=== PATIENT | male | born 1935 | race Caucasian/White ===

== ENCOUNTER 2017-08-27 09:27 | Outpatient (RCR) | payer MEDICARE, OTHER, SELFPAY ==
[2017-08-27 10:53] LABS: PSA,Total- Diagnostic < 0.01 ng/mL (0.0-4.0)
== END 2017-08-27 10:00 | disposition home or self-care (01) ==
LOC: LAB 09:27
PROVIDERS: Family Provider Family Medicine; PCP Family Medicine
DX: C61 Malignant neoplasm of prostate (principal)
CPT/HCPCS: 36415; 84153

== ENCOUNTER → 2018-02-25 12:02 | Outpatient (CLI) | payer MEDICARE, OTHER, SELFPAY ==
[2018-02-25 13:21] LABS: PSA,Total- Diagnostic < 0.01 ng/mL (0.0-4.0)
== END ==
PROVIDERS: Family Provider Family Medicine; PCP Family Medicine
DX: C61 Malignant neoplasm of prostate (principal)
CPT/HCPCS: 36415; 84153; 84403

== ENCOUNTER → 2018-08-29 11:27 | Outpatient (CLI) | payer MEDICARE, OTHER, SELFPAY ==
[2018-06-03 14:02] VITALS: BMI 24.9
[2018-08-29 13:16] LABS: PSA,Total- Diagnostic < 0.01 ng/mL (0.0-4.0)
== END ==
PROVIDERS: Family Provider Family Medicine; PCP Family Medicine
DX: C61 Malignant neoplasm of prostate (principal)
CPT/HCPCS: 36415; 84153; 84403

== ENCOUNTER → 2019-02-24 11:28 | Outpatient (CLI) | payer MEDICARE, OTHER, SELFPAY ==
[2019-01-09 14:47] VITALS: BMI 24.5
[2019-02-24 13:27] LABS: AST(SGOT) 31 U/L (15-37); Alanine Aminotransfer ALT/SGPT 29 U/L (16-61); Albumin, Serum 3.5 g/dL (3.2-5.0); Alkaline Phosphatase 69 U/L (45-117); Anion Gap 10 (5-15); BUN 14 mg/dL (7-18); BUN/Creat Ratio 13.2 RATIO (10-20); Calcium,Total 8.6 mg/dL (8.5-10.1); Chloride 108 mmol/L (98-107); Creatinine, Serum 1.06 mg/dL (0.70-1.30); EST Glomerular Filtration Rate 71 mL/min (>60); Est Glom Filt Rate - Afr Amer 86 mL/min (>60); Globulin 3.4 g/dL (2.2-4.2); Glucose 80 mg/dL (74-106); PSA,Total- Diagnostic < 0.01 ng/mL (0.0-4.0); Potassium 4.2 mmol/L (3.5-5.1); Protein, Total 6.9 g/dL (6.4-8.2); Sodium Level 141 mmol/L (136-145)
== END ==
PROVIDERS: Family Provider Family Medicine; PCP Family Medicine
DX: C61 Malignant neoplasm of prostate (principal)
CPT/HCPCS: 36415; 80053; 84153

== ENCOUNTER → 2019-08-24 09:22 | Outpatient (CLI) | payer MEDICARE, OTHER, SELFPAY ==
[2019-01-09 14:47] VITALS: BMI 24.5
[2019-08-24 10:53] LABS: ALB/GLOB Ratio 0.9 RATIO (0.9-2.4); AST(SGOT) 23 U/L (15-37); Alanine Aminotransfer ALT/SGPT 24 U/L (16-61); Albumin, Serum 3.4 g/dL (3.2-5.0); Alkaline Phosphatase 72 U/L (45-117); Anion Gap 5 (5-15); BUN 16 mg/dL (7-18); BUN/Creat Ratio 15.2 RATIO (10-20); Calcium,Total 8.9 mg/dL (8.5-10.1); Chloride 108 mmol/L (98-107); Creatinine, Serum 1.05 mg/dL (0.70-1.30); EST Glomerular Filtration Rate 71 mL/min (>60); Est Glom Filt Rate - Afr Amer 86 mL/min (>60); Globulin 3.6 g/dL (2.2-4.2); Glucose 149 mg/dL (74-106); PSA,Total- Diagnostic < 0.01 ng/mL (0.0-4.0); Potassium 4.1 mmol/L (3.5-5.1); Sodium Level 141 mmol/L (136-145)
== END ==
PROVIDERS: PCP Family Medicine
DX: C61 Malignant neoplasm of prostate (principal)
CPT/HCPCS: 36415; 80053; 84153; 84403

== ENCOUNTER → 2019-11-06 14:35 | Outpatient (CLI) | payer MEDICARE, OTHER, SELFPAY ==
[2019-08-30 10:03] VITALS: BMI 24.0
[2019-11-06 16:06] LABS: Absolute Lymphocyte Count 3.31 X10^3/uL (0.83-4.51); Basophil# 0.06 X10^3/uL; Basophil% 0.9 % (0-1); Eosinophil# 0.42 X10^3/uL; Eosinophils% 6.6 % (0-5); Hemoglobin 13.8 g/dL (13.0-16.5); Lymphocyte # 3.31 X10^3/ul (4.0); Lymphocyte % 51.9 % (19-41); Mean Corp Hgb Conc 32.9 g/dL (32-36); Mean Corpuscular Volume 100.5 fL (80-94); Mean Platelet Vol. 10.1 fl (6.2-12.0); Monocyte# 0.58 X10^3/uL; Monocyte% 9.1 % (0-10); NRBC Flagged by Analyzer 0 % (0-5); Neutrophil % 31.3 % (47-70); Platelet Count 177 K/mm3 (150-450); RBC Distribution Width CV 13.4 % (11.6-14.6); RBC Distribution Width SD 49.8 fl (35.1-43.9); Red Blood Count 4.18 M/mm3 (4.6-6.2); White Blood Count 6.4 K/mm3 (4.4-11.0)
[2019-11-06 17:03] LABS: AST(SGOT) 23 U/L (15-37); Alanine Aminotransfer ALT/SGPT 26 U/L (16-61); Albumin, Serum 3.5 g/dL (3.2-5.0); Alkaline Phosphatase 62 U/L (45-117); Anion Gap 7 (5-15); BUN 12 mg/dL (7-18); BUN/Creat Ratio 11.7 RATIO (10-20); Calcium,Total 8.8 mg/dL (8.5-10.1); Chloride 105 mmol/L (98-107); Creatinine, Serum 1.03 mg/dL (0.70-1.30); EST Glomerular Filtration Rate 73 mL/min (>60); Est Glom Filt Rate - Afr Amer 88 mL/min (>60); Globulin 3.5 g/dL (2.2-4.2); Glucose 113 mg/dL (74-106); PSA,Total- Diagnostic < 0.01 ng/mL (0.0-4.0); Sodium Level 138 mmol/L (136-145)
== END ==
PROVIDERS: PCP Family Medicine
DX: C61 Malignant neoplasm of prostate (principal)
CPT/HCPCS: 36415; 80053; 84153; 84403; 85025

== ENCOUNTER → 2020-04-05 12:29 | Outpatient (CLI) | payer MEDICARE, OTHER, SELFPAY ==
[2019-08-30 10:03] VITALS: BMI 24.0
[2020-04-05 14:12] LABS: Absolute Lymphocyte Count 2.51 X10^3/uL (0.83-4.51); Basophil# 0.05 X10^3/uL; Basophil% 0.9 % (0-1); Eosinophil# 0.24 X10^3/uL; Eosinophils% 4.4 % (0-5); Hematocrit 41.9 % (40-54); Hemoglobin 13.5 g/dL (13.0-16.5); Lymphocyte # 2.51 X10^3/ul (4.0); Lymphocyte % 46.3 % (19-41); Mean Corp Hgb Conc 32.2 g/dL (32-36); Mean Corpuscular Hgb 32.8 pg (27.0-32.0); Mean Corpuscular Volume 101.7 fL (80-94); Mean Platelet Vol. 10.4 fl (6.2-12.0); Monocyte# 0.63 X10^3/uL; Monocyte% 11.6 % (0-10); NRBC Flagged by Analyzer 0 % (0-5); Neutrophil # 1.98 X10^3/uL (2.7-7.7); Neutrophil % 36.6 % (47-70); Platelet Count 188 K/mm3 (150-450); RBC Distribution Width CV 12.7 % (11.6-14.6); Red Blood Count 4.12 M/mm3 (4.6-6.2); White Blood Count 5.4 K/mm3 (4.4-11.0)
[2020-04-05 14:38] LABS: AST(SGOT) 23 U/L (15-37); Alanine Aminotransfer ALT/SGPT 25 U/L (16-61); Albumin, Serum 3.6 g/dL (3.2-5.0); Alkaline Phosphatase 72 U/L (45-117); Anion Gap 5 (5-15); BUN 15 mg/dL (7-18); BUN/Creat Ratio 15.2 RATIO (10-20); Calcium,Total 8.6 mg/dL (8.5-10.1); Chloride 104 mmol/L (98-107); Creatinine, Serum 0.98 mg/dL (0.70-1.30); EST Glomerular Filtration Rate 77 mL/min (>60); Est Glom Filt Rate - Afr Amer 93 mL/min (>60); Globulin 3.6 g/dL (2.2-4.2); Glucose 152 mg/dL (74-106); PSA,Total- Diagnostic < 0.01 ng/mL (0.0-4.0); Potassium 4.3 mmol/L (3.5-5.1); Protein, Total 7.2 g/dL (6.4-8.2); Sodium Level 136 mmol/L (136-145)
== END ==
PROVIDERS: PCP Family Medicine
DX: C61 Malignant neoplasm of prostate (principal)
CPT/HCPCS: 36415; 80053; 84153; 85025

== ENCOUNTER → 2020-10-22 12:23 | Outpatient (CLI) | payer MEDICARE, OTHER, SELFPAY ==
[2020-10-18 13:27] VITALS: BMI 24.0
[2020-10-22 13:36] LABS: Absolute Lymphocyte Count 1.97 X10^3/uL (0.83-4.51); Absolute Neutrophil Count 1.8 X10^3/uL (2.0-7.7); Basophil# 0.06 X10^3/uL; Basophil% 1.3 % (0-1); Eosinophil# 0.16 X10^3/uL; Eosinophils% 3.5 % (0-5); Hematocrit 41.2 % (40-54); Hemoglobin 13.1 g/dL (13.0-16.5); Lymphocyte # 1.97 X10^3/ul (0.83-4.51); Mean Corp Hgb Conc 31.8 g/dL (32-36); Mean Corpuscular Hgb 32.2 pg (27.0-32.0); Mean Corpuscular Volume 101.2 fL (80-94); Mean Platelet Vol. 10.5 fl (6.2-12.0); Monocyte# 0.59 X10^3/uL; Monocyte% 12.9 % (0-10); NRBC Flagged by Analyzer 0 % (0-5); Neutrophil # 1.79 X10^3/uL (2.7-7.7); Neutrophil % 39.1 % (47-70); Platelet Count 179 K/mm3 (150-450); RBC Distribution Width CV 13.2 % (11.6-14.6); RBC Distribution Width SD 49.8 fl (35.1-43.9); Red Blood Count 4.07 M/mm3 (4.6-6.2); White Blood Count 4.6 K/mm3 (4.4-11.0)
[2020-10-22 14:18] LABS: AST(SGOT) 25 U/L (15-37); Alanine Aminotransfer ALT/SGPT 23 U/L (16-61); Albumin, Serum 3.4 g/dL (3.2-5.0); Alkaline Phosphatase 65 U/L (45-117); Anion Gap 7 (5-15); BUN 18 mg/dL (7-18); BUN/Creat Ratio 18.6 RATIO (10-20); Calcium,Total 8.6 mg/dL (8.5-10.1); Chloride 105 mmol/L (98-107); Creatinine, Serum 0.97 mg/dL (0.70-1.30); EST Glomerular Filtration Rate 78 mL/min (>60); Est Glom Filt Rate - Afr Amer 95 mL/min (>60); Globulin 3.4 g/dL (2.2-4.2); Glucose 106 mg/dL (74-106); PSA,Total- Diagnostic < 0.01 ng/mL (0.0-4.0); Potassium 4.2 mmol/L (3.5-5.1); Protein, Total 6.8 g/dL (6.4-8.2); Sodium Level 139 mmol/L (136-145)
== END ==
PROVIDERS: PCP Family Medicine
DX: C61 Malignant neoplasm of prostate (principal)
CPT/HCPCS: 36415; 80053; 84153; 84403; 85025

== ENCOUNTER → 2021-03-27 12:22 | Outpatient (CLI) | payer MEDICARE, OTHER, SELFPAY ==
[2021-03-27 13:45] LABS: Absolute Lymphocyte Count 2.36 X10^3/uL (0.83-4.51); Absolute Neutrophil Count 1.7 X10^3/uL (2.0-7.7); Basophil# 0.06 X10^3/uL; Basophil% 1.2 % (0-1); Eosinophil# 0.23 X10^3/uL; Eosinophils% 4.8 % (0-5); Hematocrit 41.1 % (40-54); Hemoglobin 13.3 g/dL (13.0-16.5); Lymphocyte # 2.36 X10^3/ul (0.83-4.51); Lymphocyte % 48.9 % (19-41); Mean Corp Hgb Conc 32.4 g/dL (32-36); Mean Corpuscular Hgb 32.6 pg (27.0-32.0); Mean Corpuscular Volume 100.7 fL (80-94); Mean Platelet Vol. 10.5 fl (6.2-12.0); Monocyte# 0.49 X10^3/uL; Monocyte% 10.1 % (0-10); NRBC Flagged by Analyzer 0 % (0-5); Neutrophil # 1.68 X10^3/uL (2.7-7.7); Neutrophil % 34.8 % (47-70); Platelet Count 185 K/mm3 (150-450); RBC Distribution Width CV 13.6 % (11.6-14.6); RBC Distribution Width SD 50.3 fl (35.1-43.9); Red Blood Count 4.08 M/mm3 (4.6-6.2); White Blood Count 4.8 K/mm3 (4.4-11.0)
[2021-03-27 14:14] LABS: ALB/GLOB Ratio 0.9 RATIO (0.9-2.4); AST(SGOT) 24 U/L (15-37); Alanine Aminotransfer ALT/SGPT 25 U/L (16-61); Albumin, Serum 3.2 g/dL (3.2-5.0); Alkaline Phosphatase 68 U/L (45-117); Anion Gap 4 (5-15); BUN 13 mg/dL (7-18); BUN/Creat Ratio 12.1 RATIO (10-20); Calcium,Total 8.8 mg/dL (8.5-10.1); Chloride 106 mmol/L (98-107); Creatinine, Serum 1.07 mg/dL (0.70-1.30); EST Glomerular Filtration Rate 70 mL/min (>60); Est Glom Filt Rate - Afr Amer 84 mL/min (>60); Globulin 3.7 g/dL (2.2-4.2); Glucose 117 mg/dL (74-106); PSA,Total- Diagnostic < 0.01 ng/mL (0.0-4.0); Protein, Total 6.9 g/dL (6.4-8.2); Sodium Level 140 mmol/L (136-145)
== END ==
PROVIDERS: PCP Family Medicine
DX: C61 Malignant neoplasm of prostate (principal)
CPT/HCPCS: 36415; 80053; 84153; 84403; 85025

== ENCOUNTER 2021-03-29 17:51 | Emergency (ER) | payer MEDICARE, OTHER, SELFPAY ==
[2021-03-29 17:52] VITALS: BP 139/79; PULSE 64; RESP 16; TEMP 36.3; O2SAT 98; BMI 27.1
--- NOTE | 2021-03-29 18:55 | EDS_ITS ---
HPI History of Present Illness Chief Complaint: Complaint Informant: patient Narrative Narrative: Patient has symptoms of urinary retention. He states he last urinated a bit at about 8 AM. He had an episode of this about 2 weeks ago but after 4 hours he was able to finally urinate. It seemed to get better. He has been urinating well. Now it came back again. Patient has a history of prostate cancer and had radiation about 5 years ago. He never has a strong stream since then but he has not had to have a catheter since his diagnosis and treatment. No fevers or chills. He overall feels fine other than pressure over the bladder. Nothing makes this better or worse. No blood in the urine. He is on Plavix. [facility] Medical History (Updated 03/29/21 @ 21:[address] Kal Henriquez MD) Atherosclerotic heart disease of [place] coronary artery without angina pectoris Essential hypertension History of prostate cancer Hyperlipidemia Hypothyroidism Non-rheumatic mitral regurgitation Nonrheumatic mitral (valve) prolapse Nonrheumatic tricuspid valve regurgitation Paroxysmal atrial fibrillation Presence of cardiac pacemaker Sick sinus syndrome Sinoatrial node dysfunction TIA (transient ischemic attack) Home Medications fluticasone propionate 1 spray NASAL BID PRN PRN 12/19/15 [History Last Taken Unknown] levothyroxine 150 mcg PO MOTUWETHFRSA 12/19/15 [History Last Taken 12/18/15] valacyclovir 2,000 mg PO BID PRN PRN 12/19/15 [History Last Taken Unknown] famotidine 40 mg tablet 40 mg PO DAILY 08/30/19 [History Last Taken Unknown] pramipexole 0.25 mg tablet 0.25 mg PO QHS PRN 08/30/19 [History Last Taken Unknown] zolpidem 10 mg tablet 10 mg PO QHS PRN 08/30/19 [History Last Taken Unknown] rosuvastatin 10 mg tablet 10 mg PO QHS #90 tab 07/05/20 [Rx Last Taken Unknown] amlodipine 2.5 mg tablet 2.5 mg PO DAILY #90 tab 12/05/20 [Rx Last Taken Unknown] clopidogrel 75 mg tablet 75 mg PO DAILY #90 tab 12/05/20 [Rx Last Taken Unknown] metoprolol succinate 100 mg tablet,extended release 24 hr 100 mg PO DAILY #90 tab 12/05/20 [Rx Last Taken Unknown] Allergy/AdvReac Type Severity Reaction Status Date / Time atorvastatin calcium AdvReac Severe myalgias Verified 03/29/21 17:52 [From Lipitor] pravastatin AdvReac Severe myalgias Verified 03/29/21 17:52 lisinopril AdvReac Intermediate Cough Verified 03/29/21 17:52 Surgical History History of knee replacement Social History Smoking Status: Former smoker alcohol intake: current details: Social ROS ROS ED Constitutional Constitutional ED: Denies chills or fever(s) Cardiovascular Cardiovascular: Denies chest pain or palpitations Respiratory/Chest Respiratory/Chest: Denies cough or dyspnea Gastrointestinal Gastrointestinal: Reports abdominal pain; Denies diarrhea, nausea or vomiting Genitourinary Genitourinary ED: Reports other Details: See history of present illness ; Denies dysuria, hematuria or urinary frequency Musculoskeletal Musculoskeletal: Denies back pain Integumentary Denies rash Neurologic Neurologic: Denies paresthesias or weakness Endocrine Endocrinology: Denies polydipsia or polyuria Hematologic/Lymphatic Hematologic/Lymphatic: Reports easy bleeding and easy bruising Allergic/Immunologic Allergic/Immunologic ED: Denies urticaria EXAM Physical Exam Const Vital Signs: 03/29/21 17:52 03/29/21 21:35 Temperature 97.4 F L Temperature Source Temporal Pulse Rate 64 66 Respiratory Rate 16 14 Blood Pressure 139/79 H 139/69 H Blood Pressure Mean 99 Pulse Ox 98 98 Oxygen Delivery Method Room Air Positive well nourished and well developed General Appearance ED: well developed and NAD HEENT atraumatic Eyes General Eye ED: Negative for pale conjunctiva or scleral icterus Resp normal respiratory effort Cardio regular rate and regular rhythm GI GI Narrative: There is a little fullness and pressure when palpating over the bladder. Rest of abdomen is completely benign. Palpation: soft no CVA tenderness Back/Spine no CVA tenderness General Back: Negative for CVA tenderness Extremity normal to inspection Neuro oriented x3 Sensorium / Orientation: alert Psych mental status grossly normal Skin Lesions: no lesions Rashes: no rashes MDM MDM MDM Narrative Medical decision making narrative: Nursing staff tried to place a catheter but could not get this to pass with a regular or daily. I went in to try to place this. Patient was actually out of the bathroom at the time. I went into see him again. He was not able to urinate in the bathroom. However he wanted something for pain prior to me trying so we have now ordered morphine. We will go back again and try to place the catheter. In the meantime, we did use Urojet to let that hopefully take effect and provide some comfort. Procedure: Gomez catheter placement: Patient was given some IM morphine that helped his discomfort. We placed the Urojet. I was not able to get a small coud?. However I could get a standard catheter in. There is a tiny little blood initially but then it immediately cleared up. He has had about 800 cc out. The urine has stayed clean. He has not had bleeding. He has not had a sudden diuresis. His symptoms are completely resolved. Urine shows no sign of infection. We will have him follow-up with urology. Catheter will need to stay in at this time. He is familiar with the care of these. He had to catheter after his radiation treatment before. Lab Data Attestation: I reviewed the patient's lab results. Labs: Laboratory Results - last 24 hr 03/29/21 20:27 Urine Color Yellow Urine Clarity Clear Urine pH 6.0 Ur Specific [place] 1.015 Urine Protein 15 H Urine Glucose (UA) Normal Urine Ketones Negative Urine Occult Blood 50 H Urine Nitrite Negative Urine Bilirubin Negative Urine Urobilinogen Normal Ur Leukocyte Esterase Negative Urine RBC 0-5 SEEN Urine WBC 0 SEEN Ur Squamous Epith Cells 0-5 SEEN Urine Bacteria RARE Urine Mucus 0 SEEN Discharge Plan Triage Chief Complaint: Complaint ED Provider: Kal Henriquez Dx/Rx/DC Orders Clinical Impression: Acute urinary retention Instructions: ED Gomez Catheter, Care Prescriptions: No Action pramipexole [Mirapex] 0.25 mg tablet 0.25 mg PO QHS PRNRF: 0 famotidine 40 mg tablet 40 mg PO DAILY RF: 0 valacyclovir 1,000 MG tablet 2,000 mg PO BID PRN PRN (Reason: Herpes outbreak) RF: 0 levothyroxine 150 MCG tablet 150 mcg PO MOTUWETHFRSA RF: 0 fluticasone propionate 1 SPRAY spray,suspension 1 spray NASAL BID PRN PRN (Reason: Allergies) RF: 0 zolpidem 10 mg tablet 10 mg PO QHS PRN (Reason: sleep) RF: 0 rosuvastatin 10 mg tablet 10 mg PO QHS Qty: 90 RF: 3 clopidogrel 75 mg tablet 75 mg PO DAILY Qty: 90 RF: 3 metoprolol succinate 100 mg tablet extended release 24 hr 100 mg PO DAILY Qty: 90 RF: 3 amlodipine 2.5 mg tablet 2.5 mg PO DAILY Qty: 90 RF: 3 Primary Care Provider: Andrei Sanchez Referrals: Brice Bowers MD [STAFF PHYSICIAN] - 3-5 Days Andrei Sanchez MD [Primary Care Provider] - 3-5 Days Disposition Disposition: Home, Self Care Discharge Date/Time: 03/29/21 21:36
[2021-03-29] MEDS: Lidocaine Jelly 2% 20 ML Syringe (URO-JET) 20 APPLIC TOPICAL (19:08)
[2021-03-29] MEDS: Morphine 4 MG/ML Syringe IM (19:40)
--- NOTE | 2021-03-29 20:19 | ED.RN ---
multiple attempts made to place Gomez catheter. ED DR was successful on third attempt. abhay garcia rn 2020
[2021-03-29 20:35] LABS: Mucous, Urine 0 SEEN /hpf (<or=2+); White Blood Cells 0 SEEN /hpf (0-5)
[2021-03-29 20:37] LABS: Color, Urine Yellow (Yellow); Glucose, Dipstick Normal (Normal); Ketone-Dipstick Negative (Negative); Leukocyte Esterase-Dipstick Negative /ul (Negative); Nitrite-Dipstick Negative (Negative); Occult Blood-Urine 50 /ul (Negative); Protein-Dipstick 15 mg/dl (Negative); Specific Gravity, Urine 1.015 (1.002-1.030); Urine Bilirubin Dipstick Negative (Negative); Urine Clarity Clear (Clear); Urine Urobilinogen Normal (Normal)
[2021-03-29 20:50] LABS: Bacteria RARE /hpf (None Seen); Red Blood Cells-Urine 0-5 SEEN /hpf (0-5); Squamous Epithelial Cells - UA 0-5 SEEN /hpf (0-5)
[2021-03-29 21:35] VITALS: BP 139/69; PULSE 66; RESP 14; O2SAT 98
== END 2021-03-29 21:36 | disposition home or self-care (01) ==
PROVIDERS: Emergency Provider Emergency Medicine; PCP Family Medicine
DX: R33.9 Retention of urine, unspecified (principal); E03.9 Hypothyroidism, unspecified; E78.5 Hyperlipidemia, unspecified; I10 Essential (primary) hypertension; I25.10 Atherosclerotic heart disease of native coronary artery without angina pectoris; I34.1 Nonrheumatic mitral (valve) prolapse; I48.0 Paroxysmal atrial fibrillation; Z79.02 Long term (current) use of antithrombotics/antiplatelets; Z85.46 Personal history of malignant neoplasm of prostate; Z87.891 Personal history of nicotine dependence; Z92.3 Personal history of irradiation; Z95.0 Presence of cardiac pacemaker; Z79.899 Other long term (current) drug therapy; Z86.73 Personal history of transient ischemic attack (TIA), and cerebral infarction without residual deficits; Z96.659 Presence of unspecified artificial knee joint
CPT/HCPCS: 51702; 81001; 96372; 99284

== ENCOUNTER → 2021-08-28 16:11 | Outpatient (CLI) | payer MEDICARE, OTHER, SELFPAY ==
[2021-08-28 17:31] LABS: Absolute Lymphocyte Count 2.53 X10^3/uL (0.83-4.51); Absolute Neutrophil Count 2.6 X10^3/uL (2.0-7.7); Basophil# 0.05 X10^3/uL; Basophil% 0.8 % (0-1); Eosinophils% 3.4 % (0-5); Hematocrit 41.4 % (40-54); Hemoglobin 13.9 g/dL (13.0-16.5); Lymphocyte # 2.53 X10^3/ul (0.83-4.51); Lymphocyte % 42.6 % (19-41); Mean Corp Hgb Conc 33.6 g/dL (32-36); Mean Corpuscular Hgb 33.6 pg (27.0-32.0); Mean Platelet Vol. 10.4 fl (6.2-12.0); Monocyte# 0.57 X10^3/uL; Monocyte% 9.6 % (0-10); NRBC Flagged by Analyzer 0 % (0-5); Neutrophil # 2.58 X10^3/uL (2.7-7.7); Neutrophil % 43.4 % (47-70); Platelet Count 188 K/mm3 (150-450); RBC Distribution Width CV 13.2 % (11.6-14.6); RBC Distribution Width SD 49.2 fl (35.1-43.9); Red Blood Count 4.14 M/mm3 (4.6-6.2); White Blood Count 5.9 K/mm3 (4.4-11.0)
[2021-08-28 18:14] LABS: AST(SGOT) 21 U/L (15-37); Alanine Aminotransfer ALT/SGPT 23 U/L (16-61); Albumin, Serum 3.6 g/dL (3.2-5.0); Alkaline Phosphatase 65 U/L (45-117); Anion Gap 3 (5-15); BUN 15 mg/dL (7-18); BUN/Creat Ratio 15.8 RATIO (10-20); Calcium,Total 8.6 mg/dL (8.5-10.1); Chloride 104 mmol/L (98-107); Creatinine, Serum 0.95 mg/dL (0.70-1.30); EST Glomerular Filtration Rate 80 mL/min (>60); Est Glom Filt Rate - Afr Amer 97 mL/min (>60); Globulin 3.5 g/dL (2.2-4.2); Glucose 102 mg/dL (74-106); PSA,Total- Diagnostic < 0.01 ng/mL (0.0-4.0); Potassium 4.3 mmol/L (3.5-5.1); Protein, Total 7.1 g/dL (6.4-8.2); Sodium Level 136 mmol/L (136-145)
== END ==
PROVIDERS: PCP Family Medicine
DX: C61 Malignant neoplasm of prostate (principal)
CPT/HCPCS: 36415; 80053; 84153; 84403; 85025

== ENCOUNTER → 2022-02-26 | Outpatient (CLI) | payer MEDICARE, OTHER, SELFPAY ==
[2022-02-26 13:12] LABS: PSA,Total- Diagnostic < 0.01 ng/mL (0.0-4.0)
== END | disposition home or self-care (01) ==
LOC: LAB 12:07
PROVIDERS: PCP Family Medicine
DX: C61 Malignant neoplasm of prostate (principal)
CPT/HCPCS: 36415; 84153

== ENCOUNTER → 2022-12-02 | Outpatient (CLI) | payer MEDICARE, OTHER, SELFPAY ==
[2022-12-02 17:40] LABS: PSA,Total- Diagnostic < 0.01 ng/mL (0.0-4.0)
== END | disposition home or self-care (01) ==
PROVIDERS: PCP Family Medicine
DX: C61 Malignant neoplasm of prostate (principal)
CPT/HCPCS: 36415; 84153

== ENCOUNTER → 2023-03-22 | Outpatient (CLI) | payer MEDICARE, OTHER, SELFPAY ==
--- NOTE | 2023-03-22 13:33 | ECHOCS_ITS ---
Reason For Study: Nonrheumatic MV Procedure This was a 2D Doppler, Color Flow transthoracic echocardiogram. The study was technically difficult. Contrast injection was performed. Exam performed in department. Left Ventricle Normal LV size. Sigmoid septum. Mild concentric left ventricular hypertrophy. Left ventricular systolic function is normal. The estimated ejection fraction is 60 %. Stage 1 diastolic dysfunction. No regional wall motion abnormalities noted. Right Ventricle Normal RV size. Normal systolic function. Atria Normal left atrium. Mitral Valve Normal mitral valve. Tricuspid Valve Normal tricuspid valve. Aortic Valve Mild focal aortic valve calcification. Pulmonic Valve Normal pulmonic valve. Great Vessels Normal aortic root. The pulmonary artery is normal size. Inferior vena cava collapse with respiration. Pericardium/Pleural No pericardial effusion. Medication 22 gauge I.V. with prn adaptor inserted into right arm. Diluted definity 2ml given slow IV push to enhance endocardial definition. MMode/2D Measurements & Calculations LVIDd: 3.8 cm IVSd: 1.4 cm LVOT diam: 2.0 cm LVIDs: 2.8 cm LVPWd: 1.2 cm RVDd: 3.0 cm FS: 24.9 % LVOT area: 3.1 cm2 Ao root diam: 3.5 cm LAV(MOD-bp): 73.6 ml LVAd ap4: 27.7 cm2 ACS: 0.98 cm LAV(MOD-bp) Indexed: 34.5 ml/m2 LVLd ap4: 7.0 cm LA dimension: 3.9 cm LAV(MOD-sp2): 93.9 ml EDV(MOD-sp4): 88.8 ml LAV(MOD-sp4): 54.7 ml EDV(sp4-el): 92.6 ml LVAs ap4: 15.3 cm2 LVLs ap4: 5.5 cm ESV(MOD-sp4): 35.2 ml ESV(sp4-el): 36.2 ml EF(MOD-sp4): 60.4 % EF(sp4-el): 61.0 % SV(MOD-sp4): 53.6 ml SV(sp4-el): 56.5 ml LA A4 area: 19.4 cm2 TAPSE: 2.1 cm Time Measurements MV dec time: 0.30 sec Doppler Measurements & Calculations MV E max sukh: 41.4 cm/sec Lat Peak E' Sukh: 2.7 cm/sec Med Peak E' Sukh: 5.2 cm/sec MV A max sukh: 66.2 cm/sec E/E' lat: 15.1 E/E' med: 8.0 MV E/A: 0.63 MV V2 max: 81.6 cm/sec MV P1/2t max sukh: 49.7 cm/sec Ao V2 max: 194.2 cm/sec MV max P.7 mmHg MV P1/2t: 109.8 msec Ao max P.1 mmHg MV V2 mean: 37.8 cm/sec Ao V2 mean: 133.1 cm/sec MV mean P.69 mmHg MV dec slope: 132.7 cm/sec2 Ao mean P.1 mmHg MV V2 VTI: 21.9 cm MVA(P1/2t): 2.0 cm2 Ao V2 VTI: 44.7 cm AV (velocity ratio): 0.38 MVA(VTI): 2.4 cm2 BENITA(I,D): 1.2 cm2 BENITA(V,D): 1.2 cm2 LV V1 max: 73.3 cm/sec SV(LVOT): 51.7 ml PA V2 max: 74.8 cm/sec LV V1 max P.2 mmHg LV V1 mean P.97 mmHg LV V1 mean: 44.9 cm/sec LV V1 VTI: 16.9 cm ECHO/Echo Complete W/ Contrast Interpretation Summary Normal LV size. Left ventricular systolic function is normal. The estimated ejection fraction is 60 %. Stage 1 diastolic dysfunction. Mild concentric left ventricular hypertrophy. Contrast injection was performed. Ordering Physician: Radha Garza Referring Physician: Radha Garza Performed By: Kane Hein RCS
== END | disposition home or self-care (01) ==
PROVIDERS: PCP Family Medicine; Referring Provider Nurse Practitioner Gerontology; Visit Provider Nurse Practitioner Gerontology
DX: I34.0 Nonrheumatic mitral (valve) insufficiency (principal); Z95.0 Presence of cardiac pacemaker; I25.10 Atherosclerotic heart disease of native coronary artery without angina pectoris; I10 Essential (primary) hypertension
CPT/HCPCS: 93306; Q9957; A4216; C8929

== ENCOUNTER → 2023-07-27 | Outpatient (CLI) | payer MEDICARE, OTHER, SELFPAY | END | disposition home or self-care (01) | LOC: LAB 13:57 | PROVIDERS: PCP Family Medicine | DX: C61 Malignant neoplasm of prostate (principal) | CPT/HCPCS: 84403 ==

== ENCOUNTER 2023-11-02 10:58 | Emergency (ER) | payer MEDICARE, OTHER, SELFPAY ==
[2023-11-02] VITALS (7 sets, daily range): BP systolic 154–174; BP diastolic 73–85; PULSE 60–72; RESP 12–24; TEMP 36.1–36.6; O2SAT 95–98; BMI 28.3; BMI 28.8
--- NOTE | 2023-11-02 11:05 | CT_ITS ---
EXAM: CT HEAD WITHOUT INTRAVENOUS CONTRAST CLINICAL INDICATION: Neuro deficit, acute, stroke suspected . TECHNIQUE: Multiple axial images were obtained of the head without intravenous contrast. This CT exam was performed using one or more of the following dose reduction techniques: automated exposure control, adjustment of the mA and/or kV according to patient size, and/or use of iterative reconstruction technique. COMPARISON: No relevant prior studies available. FINDINGS: BRAIN AND EXTRA-AXIAL SPACES: No hemorrhage or mass effect. No acute ischemia. Areas of diminished white matter density noted within both cerebral hemispheres suggestive of chronic microvascular change. Prominence of the cortical sulci and ventricles related to volume loss change. BONES/JOINTS: Normal calvarium. SINUSES: No acute sinusitis. MASTOID AIR CELLS: Normal. Clear. OTHER FINDINGS: Question of a dense left M2 segment. CT/STROKE Brain/Head without Cont IMPRESSION: 1. Question dense left M2 segment. 2. No evidence of acute ischemia. 3. Diffuse senescent changes. Aspect score 10. N.B. : The above Results were Read Back by Adriano Jack MD to Johny Arevalo DO, and understanding confirmed on 11/02/2023 11:23:12 (ET). Electronically Signed: Adriano Jack MD at 11:24 EDT ,
--- NOTE | 2023-11-02 11:05 | EKG12_ITS ---
Test Reason : STROKE ALERT Blood Pressure : / mmHG Vent. Rate : 060 BPM Atrial Rate : 060 BPM P-R Int : 192 ms QRS Dur : 088 ms QT Int : 402 ms P-R-T Axes : 033 015 040 degrees QTc Int : 402 ms Atrial-paced rhythm Abnormal ECG Confirmed by SOPHIA SHARMA MD ([id number]), film editor DILCIA BELLA ([id number]) on 11/04/2023 6:57:32 AM Referred By: Confirmed By:SOPHIA SHARMA MD
--- NOTE | 2023-11-02 11:05 | NURSING ---
1105 STROKE ALERT CALLED FROM TRIAGE
--- NOTE | 2023-11-02 11:07 | CT_ITS ---
INDICATION: stroke symptoms EXAMINATION: CTA HEAD - CTA Head and Neck Stroke W/ Contrast (and W/O if performed) TECHNIQUE: [place]/head CT angiogram protocol was performed following IV contrast. Routine carotid CT angiogram protocol was performed with IV contrast. NASCET criteria using the distal ICAs for comparison were used for evaluation of stenoses. 3D reconstructions were reviewed of the CT angiogram head and neck. A radiation dose optimization technique was used for this scan. IV Contrast dosage and agent: 100 cc [id number] COMPARISON: None. FINDINGS: --Anterior cerebral circulation: ACAs: No significant stenosis at the visualized segments. ACOM: Not present MCAs: No significant stenosis at the visualized segments. --Posterior cerebral circulation: PCOMs: Not present. masonry installer: No significant stenosis at the visualized segments. BASILAR ARTERY: No significant stenosis. --Carotid and vertebral circulation: AORTIC ARCH AND BRANCHES: Normal anatomy, patent. RIGHT CCA: No occlusion, significant stenosis or dissection. RIGHT ICA: No occlusion, significant stenosis or dissection. LEFT CCA: No occlusion, significant stenosis or dissection. LEFT ICA: Mild calcific plaquing at the left carotid bulb. No occlusion, significant stenosis or dissection. 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 No occlusion, significant stenosis or dissection. LEFT VERTEBRAL ARTERY: No occlusion, significant stenosis or dissection. NECK SOFT TISSUES: Unremarkable. LUNG APICES: 11 mm right upper lobe pulmonary nodule noted with mild spiculation of the margins suspicious for neoplasm. BONES: Prominent diffuse spondylosis of the cervical spine. CT/STROKE CTA Head AND Neck W/Con IMPRESSION: No evidence of arterial stenosis, occlusion or dissection. 11 mm mildly spiculated right upper lobe pulmonary nodule. Fleischner Society Guidelines recommend chest CT evaluation. N.B. : The above Results were Read Back by Adriano Jack MD to Johny Arevalo DO, and understanding confirmed on 11/02/2023 11:40:09 (ET). Electronically Signed: Adriano Jack MD at 11:45 EDT ,
--- NOTE | 2023-11-02 11:11 | ED.RN ---
1109 THIS RN ON THE PHONE WITH [facility] FOR FIRST CALL.
[2023-11-02 11:15] LABS: Absolute Lymphocyte Count 3.56 X10^3/uL (0.83-4.51); Absolute Neutrophil Count 1.6 X10^3/uL (2.0-7.7); Basophil# 0.07 X10^3/uL; Basophil% 1.2 % (0-1); Eosinophil# 0.29 X10^3/uL; Eosinophils% 4.8 % (0-5); Hematocrit 41.7 % (40-54); Hemoglobin 13.5 g/dL (13.0-16.5); Lymphocyte # 3.56 X10^3/ul (0.83-4.51); Lymphocyte % 58.7 % (19-41); Mean Corp Hgb Conc 32.4 g/dL (32-36); Mean Corpuscular Hgb 32.1 pg (27.0-32.0); Mean Platelet Vol. 9.7 fl (6.2-12.0); Monocyte# 0.51 X10^3/uL; Monocyte% 8.4 % (0-10); NRBC Flagged by Analyzer 0 % (0-5); Neutrophil # 1.62 X10^3/uL (2.7-7.7); Neutrophil % 26.7 % (47-70); Platelet Count 203 K/mm3 (150-450); RBC Distribution Width SD 47.2 fl (35.1-43.9); Red Blood Count 4.21 M/mm3 (4.6-6.2); White Blood Count 6.1 K/mm3 (4.4-11.0)
[2023-11-02 11:23] LABS: Partial Thromboplast Time 27.7 Seconds (24.1-36.2)
[2023-11-02 11:23] LABS: Bedside Glucose 114 mg/dL (74-106)
[2023-11-02 11:34] LABS: Anion Gap 6 (5-15); BUN 10 mg/dL (7-18); BUN/Creat Ratio 9.7 RATIO (10-20); Calcium,Total 9.3 mg/dL (8.5-10.1); Chloride 104 mmol/L (98-107); Creatinine, Serum 1.03 mg/dL (0.70-1.30); EST Glomerular Filtration Rate 72 mL/min (>60); Est Glom Filt Rate - Afr Amer 87 mL/min (>60); Estimated Creatinine Clearance 55.18 ml/min; Glucose 121 mg/dL (74-106); Potassium 4.3 mmol/L (3.5-5.1); Sodium Level 137 mmol/L (136-145); Troponin-I HS 7 pg/mL (3.0-78.0)
--- NOTE | 2023-11-02 11:50 | RAD_ITS ---
EXAM: XR CHEST, 1 VIEW CLINICAL INDICATION: Neuro deficit, acute, stroke suspected TECHNIQUE: Frontal view of the chest. COMPARISON: No relevant prior studies available. FINDINGS: LUNGS AND PLEURAL SPACES: Normal. No consolidation or edema. No pneumothorax. No effusion. HEART: Normal heart size. MEDIASTINUM: Retrocardiac density consistent with moderate size hiatal hernia. BONES/JOINTS: No acute abnormality. TUBES, LINES AND DEVICES: Atrial and ventricular pacemaker wires are in place. UPPER ABDOMEN: Elevation the right hemidiaphragm. RAD/Chest 1 View IMPRESSION: No acute cardiopulmonary abnormality. Hiatal hernia. Electronically Signed: Adriano Jack MD at 12:04 EDT ,
--- NOTE | 2023-11-02 15:52 | EX.ED.DYSGE1 ---
HPI History of Present Illness Chief Complaint: Stroke Alert Narrative Narrative: I was called to triage to evaluate a 88-year-old male presenting with some lightheadedness and he states he feels off balance. He states this started about 3 hours prior to coming in. He denies a sudden onset headache and states he has the faintest of vision change which when he describes it as states he is just not quite as clear as it usually is. He has not had any slurred speech, facial droop. He is now having trouble losing extremities. No numbness or tingling. Patient states he has a history of a TIA which did not feel similar to this. [facility] Medical History Atherosclerotic heart disease of [place] coronary artery without angina pectoris Essential hypertension History of prostate cancer Hyperlipidemia Hypothyroidism Non-rheumatic mitral regurgitation Nonrheumatic mitral (valve) prolapse Nonrheumatic tricuspid valve regurgitation Paroxysmal atrial fibrillation Presence of cardiac pacemaker Sick sinus syndrome Sinoatrial node dysfunction TIA (transient ischemic attack) Home Medications fluticasone propionate 50 mcg/actuation nasal spray,suspension 1 spray NASAL BID PRN Allergies 12/19/15 [History Last Taken 11/01/23] levothyroxine 150 mcg tablet 150 mcg PO MOTUWETHFRSA 12/19/15 [History Last Taken 11/02/23] famotidine 40 mg tablet 40 mg PO DAILY 08/30/19 [History Last Taken 11/02/23] zolpidem 10 mg tablet 10 mg PO QHS PRN sleep 08/30/19 [History Last Taken 11/01/23] amlodipine 2.5 mg tablet 2.5 mg PO DAILY #90 tabs 08/18/22 [Rx Last Taken 11/02/23] clopidogrel 75 mg tablet 75 mg PO DAILY #90 tabs 08/18/22 [Rx Last Taken 11/02/23] metoprolol succinate 100 mg tablet,extended release 24 hr 100 mg PO DAILY #90 tabs 09/24/23 [Rx Last Taken 11/02/23] pramipexole 0.5 mg tablet 0.5 mg PO DAILY 11/02/23 [History Last Taken 11/01/23] rosuvastatin 5 mg tablet 5 mg PO QHS 11/02/23 [History Last Taken 11/01/23] Allergy/AdvReac Type Severity Reaction Status Date / Time atorvastatin calcium AdvReac Severe myalgias Verified 11/02/23 11:04 [From Lipitor] pravastatin AdvReac Severe myalgias Verified 11/02/23 11:04 lisinopril AdvReac Intermediate Cough Verified 11/02/23 11:04 Surgical History History of knee replacement Social History Smoking Status: Former smoker alcohol intake: current details: Social ROS ROS ED Constitutional Constitutional ED: Denies chills, fever(s) or sweats Eyes Eyes: Reports change in vision bilateral; Denies blurry vision ENT ENT ED: Denies ear pain or sore throat Cardiovascular Cardiovascular: Denies chest pain, palpitations or racing heartbeat Respiratory/Chest Respiratory/Chest: Denies cough, dyspnea or sputum Gastrointestinal Gastrointestinal: Denies abdominal pain, constipation, diarrhea, nausea or vomiting Genitourinary Genitourinary ED: Denies dysuria, hematuria or urinary frequency Musculoskeletal Musculoskeletal: Denies arthralgias, myalgias or neck pain Integumentary Denies abscess, Abrasions or rash Neurologic Neurologic: Reports other Details: Dizziness ; Denies headache(s), paresthesias or weakness Psychiatric Psychiatric: Denies anxiety, depression, suicidal ideation or suicidal thoughts Endocrine Endocrinology: Denies polydipsia or polyuria EXAM Physical Exam Const Vital Signs: 11/02/23 11:03 11/02/23 11:17 11/02/23 11:18 Temperature 98 F Temperature Source Temporal Pulse Rate 61 68 Respiratory Rate 14 24 H Blood Pressure 160/76 H 174/78 H Blood Pressure Mean 104 110 Pulse Ox 98 97 98 Oxygen Delivery Method Room Air Room Air Room Air 11/02/23 12:05 11/02/23 12:30 11/02/23 13:00 Temperature Temperature Source Pulse Rate 60 70 60 Respiratory Rate 20 H 13 12 Blood Pressure 159/73 H 154/75 H 161/83 H Blood Pressure Mean 101 101 109 Pulse Ox 95 95 95 Oxygen Delivery Method Room Air Room Air Room Air 11/02/23 13:16 Temperature 97.0 F L Temperature Source Pulse Rate 72 Respiratory Rate 16 Blood Pressure 161/85 H Blood Pressure Mean 110 Pulse Ox 96 Oxygen Delivery Method Positive well nourished HEENT Reports moist mucous membranes Eyes PERRL and EOMs intact bilaterally Chest Wall inspection of chest normal Resp normal respiratory effort and clear to auscultation bilaterally Cardio regular rate and regular rhythm GI normal to inspection, nondistended, normoactive bowel sounds Neuro oriented x3 and CN's II-XII intact bilaterally Sensorium / Orientation: alert Motor Exam: general weakness Psych mental status grossly normal MDM MDM MDM Narrative Medical decision making narrative: Patient presenting with concern for stroke symptoms. I was called to triage to evaluate him. He did get up and tried to walk and felt like he was falling to the left. He describes a visual disturbance although focally identified any deficits. Given the timeframe I did call stroke team to have him evaluated quickly and he was brought to CT. Stroke was pursued. Blood work including CBC, BMP normal. High-sensitivity: 7. PT/INR normal. CT brain and CTA were negative for any acute findings. It was brought to my attention that the patient has a spiculated mass on his CT and the right upper lobe which is 11 mm. The patient is aware of this and states he had it previously diagnosed on previous CT when he had a sternal fracture. He does not feel he needs a CT of his chest today. His workup is ultimately normal and we discussed admission for possible TIA although he states he does not want to stay and he has capacity to make decision. We discussed the risk and benefits of admission and discharge. Given this I did give return precautions and he was discharged. Impression: 1. Lightheadedness 2. Visual disturbance Lab Data Attestation: I reviewed the patient's lab results. Labs: Laboratory Results - last 24 hr 11/02/23 11/02/23 11:05 11:07 WBC 6.1 RBC 4.21 L Hgb 13.5 Hct 41.7 MCV 99.0 H MCH 32.1 H MCHC 32.4 RDW Std Deviation 47.2 H RDW Coeff of Edi 13.0 Plt Count 203 MPV 9.7 Immature Gran % (Auto) 0.200 Neut % (Auto) 26.7 L Lymph % (Auto) 58.7 H Gregg % (Auto) 8.4 Eos % (Auto) 4.8 Baso % (Auto) 1.2 H Absolute Neuts (auto) 1.6 L Absolute Lymphs (auto) 3.56 Nucleated RBC % 0 PT 13.0 INR 1.0 APTT 27.7 Sodium 137 Potassium 4.3 Chloride 104 Carbon Dioxide 27.0 Anion Gap 6 BUN 10 Creatinine 1.03 Estim Creat Clear Calc 55.18 Est GFR (MDRD) Af Amer 87 Est GFR (MDRD) Non-Af 72 BUN/Creatinine Ratio 9.7 L Glucose 121 H Calcium 9.3 Troponin I High Sens 7 POC Glucose 114 H Radiography Diagnostic Testing: Clinical Impression(s) from Imaging Studies Brain CT 11/02/23 11:05 IMPRESSION: 1. Question dense left M2 segment. 2. No evidence of acute ischemia. 3. Diffuse senescent changes. Aspect score 10. N.B. : The above Results were Read Back by Adriano Jack MD to Johny Arevalo DO, and understanding confirmed on 11/02/2023 11:23:12 (ET). Electronically Signed: Adriano Jack MD at 11:24 EDT , ADDENDUM: 11/02/23 1131 IMPRESSION: 1. Question dense left M2 segment. 2. No evidence of acute ischemia. 3. Diffuse senescent changes. Aspect score 10. N.B. : The above Results were Read Back by Adriano Jack MD to Johny Arevalo DO, and understanding confirmed on 11/02/2023 11:23:12 (ET). Electronically Signed: Adriano Jack MD at 11:24 EDT , Head/Neck CTA 11/02/23 11:07 IMPRESSION: No evidence of arterial stenosis, occlusion or dissection. 11 mm mildly spiculated right upper lobe pulmonary nodule. Fleischner Society Guidelines recommend chest CT evaluation. N.B. : The above Results were Read Back by Adriano Jack MD to Johny Arevalo DO, and understanding confirmed on 11/02/2023 11:40:09 (ET). Electronically Signed: Adriano Jack MD at 11:45 EDT , ADDENDUM: 11/02/23 1152 IMPRESSION: No evidence of arterial stenosis, occlusion or dissection. 11 mm mildly spiculated right upper lobe pulmonary nodule. Fleischner Society Guidelines recommend chest CT evaluation. N.B. : The above Results were Read Back by Adriano Jack MD to Johny Arevalo DO, and understanding confirmed on 11/02/2023 11:40:09 (ET). Electronically Signed: Adriano Jack MD at 11:45 EDT , Chest X-Ray 11/02/23 11:50 IMPRESSION: No acute cardiopulmonary abnormality. Hiatal hernia. Electronically Signed: Adriano Jack MD at 12:04 EDT , Discharge Plan Triage Chief Complaint: Stroke Alert ED Provider: Johny Arevalo Dx/Rx/DC Orders Instructions: ED Dizziness, Uncertain Cause, ED Pulmonary Nodule, Solitary Prescriptions: No Action famotidine 40 mg tablet 40 mg PO DAILY levothyroxine 150 MCG tablet 150 mcg PO MOTUWETHFRSA fluticasone propionate 1 SPRAY spray,suspension 1 spray NASAL BID PRN (Reason: Allergies) zolpidem 10 mg tablet 10 mg PO QHS PRN (Reason: sleep) pramipexole 0.5 mg tablet 0.5 mg PO DAILY rosuvastatin 5 mg tablet 5 mg PO QHS clopidogrel 75 mg tablet 75 mg PO DAILY Qty: 90 4RF amlodipine 2.5 mg tablet 2.5 mg PO DAILY Qty: 90 4RF metoprolol succinate 100 mg tablet extended release 24 hr 100 mg PO DAILY Qty: 90 3RF Primary Care Provider: Andrei Sanchez Referrals: Andrei Sanchez MD [Primary Care Provider] - Disposition Disposition: Home, Self Care Discharge Date/Time: 11/02/23 13:28
== END 2023-11-02 13:28 | disposition home or self-care (01) ==
PROVIDERS: Emergency Provider Student in an Organized Health Care Education/Training Program; PCP Family Medicine; Visit Provider Student in an Organized Health Care Education/Training Program
DX: R42 Dizziness and giddiness (principal); I48.0 Paroxysmal atrial fibrillation; Z87.891 Personal history of nicotine dependence; H53.9 Unspecified visual disturbance; Z86.73 Personal history of transient ischemic attack (TIA), and cerebral infarction without residual deficits; I25.10 Atherosclerotic heart disease of native coronary artery without angina pectoris; I10 Essential (primary) hypertension; E78.5 Hyperlipidemia, unspecified; Z85.46 Personal history of malignant neoplasm of prostate; Z95.0 Presence of cardiac pacemaker; E03.9 Hypothyroidism, unspecified; Z79.899 Other long term (current) drug therapy; Z79.02 Long term (current) use of antithrombotics/antiplatelets; Z96.659 Presence of unspecified artificial knee joint
CPT/HCPCS: 70450; 70496; 70498; 71045; 80048; 82962; 84484; 85025; 85610; 85730; 93005; 99284; Q9967; A4216

== ENCOUNTER → 2023-12-06 | Outpatient (CLI) | payer MEDICARE, OTHER, SELFPAY ==
[2023-12-06 13:12] LABS: PSA,Total- Diagnostic < 0.01 ng/mL (0.0-4.0)
== END | disposition home or self-care (01) ==
LOC: LAB 11:19
PROVIDERS: PCP Family Medicine; Referring Provider Nurse Practitioner; Visit Provider Nurse Practitioner
DX: C61 Malignant neoplasm of prostate (principal)
CPT/HCPCS: 36415; 84153; 84402; 84403

== ENCOUNTER → 2024-06-12 | Outpatient (CLI) | payer MEDICARE, OTHER, SELFPAY ==
[2024-06-12 16:03] LABS: Absolute Lymphocyte Count 2.32 X10^3/uL (0.83-4.51); Absolute Neutrophil Count 2.6 X10^3/uL (2.0-7.7); Basophil# 0.06 X10^3/uL; Eosinophil# 0.24 X10^3/uL; Eosinophils% 4.1 % (0-5); Hemoglobin 13.1 g/dL (13.0-16.5); Lymphocyte # 2.32 X10^3/ul (0.83-4.51); Lymphocyte % 40.1 % (19-41); Mean Corpuscular Hgb 32.2 pg (27.0-32.0); Mean Corpuscular Volume 100.7 fL (80-94); Mean Platelet Vol. 9.8 fl (6.2-12.0); Monocyte% 10.4 % (0-10); NRBC Flagged by Analyzer 0 % (0-5); Neutrophil # 2.55 X10^3/uL (2.7-7.7); Neutrophil % 44.1 % (47-70); Platelet Count 198 K/mm3 (150-450); RBC Distribution Width CV 13.9 % (11.6-14.6); RBC Distribution Width SD 51.8 fl (35.1-43.9); Red Blood Count 4.07 M/mm3 (4.6-6.2); White Blood Count 5.8 K/mm3 (4.4-11.0)
[2024-06-12 16:41] LABS: AST(SGOT) 24 U/L (15-37); Alanine Aminotransfer ALT/SGPT 23 U/L (16-61); Albumin, Serum 3.6 g/dL (3.2-5.0); Alkaline Phosphatase 71 U/L (45-117); Anion Gap 7 (5-15); BUN 15 mg/dL (7-18); BUN/Creat Ratio 12.7 RATIO (10-20); Chloride 103 mmol/L (98-107); Creatinine, Serum 1.18 mg/dL (0.70-1.30); EST Glomerular Filtration Rate 62 mL/min (>60); Est Glom Filt Rate - Afr Amer 75 mL/min (>60); Globulin 3.6 g/dL (2.2-4.2); Glucose 132 mg/dL (74-106); PSA,Total- Diagnostic < 0.01 ng/mL (0.0-4.0); Potassium 4.3 mmol/L (3.5-5.1); Protein, Total 7.2 g/dL (6.4-8.2); Sodium Level 135 mmol/L (136-145)
== END | disposition home or self-care (01) ==
LOC: LAB 15:32
PROVIDERS: PCP Family Medicine
DX: C61 Malignant neoplasm of prostate (principal)
CPT/HCPCS: 36415; 80053; 84153; 84403; 85025